=== PATIENT | male | born 1980 | race Caucasian/White ===

== ENCOUNTER 2017-01-27 05:53 | Emergency (ER) | payer OTHER ==
[~2017-01-27] VITALS: Ht 182.9 cm; Wt 69.6 kg
[~2017-01-27 05:53] MED LIST: CHLO.12%30 SSP; NAPR-576 PO; PENI500T PO
[2017-01-27 06:04] VITALS: BP 114/82; PULSE 93; RESP 14; TEMP 98.3; O2SAT 100
[2017-01-27 06:10] VITALS: BP 140/91; PULSE 89; RESP 18; O2SAT 100
[2017-01-27] MEDS ORDERED: NAPR220T95 PO (06:16)
[2017-01-27] MEDS ORDERED: IBUP400T20 PO (06:16)
[2017-01-27 06:50] VITALS: BP 140/91; PULSE 78; RESP 16; O2SAT 98
--- NOTE | 2017-01-27 07:37 | PD ---
HPI Chief Complaint: Musculoskeletal Complaint Time Seen by Provider: 07:19 Travel History International Travel<30 days: No Contact w/Intl Traveler<30days: No Traveled to known affect area: No History of Present Illness HPI This patient complains of straining his left pectoral muscle. Friday he was doing some shoveling in the yard later that evening had discomfort there. It is clearly reproducible with movement or raising his arm above his head. Severity is mild PFSH Past Medical History Medical History: Denies Significant Hx Diminished Hearing: No Immunizations Current: Yes Tetanus Vaccination: < 5 Years Influenza Vaccination: No Past Surgical History Surgical History: No Previous Surgery Social History Alcohol Use: No Tobacco Use: Yes (09/16 PPD) Substance Use: No Allergies-Medications (Allergen,Severity, Reaction): Coded Allergies: No Known Allergies (Unverified , 01/27/17) Reported Meds & Prescriptions Reported Meds & Active Scripts Active Reported Aleve (Naproxen Sodium) 220 Mg Tab 220 Mg PO BID PRN Ibuprofen 400 Mg Tab 400 Mg PO Q4H PRN Review of Systems General / Constitutional: No: Fever HENT: No: Headaches Respiratory: No: Cough Physical Exam Narrative CARDIOVASCULAR: Regular rate and rhythm without murmur. Extremities showed no edema or varicosities. RESPIRATORY: Respiratory effort unlabored, no retractions or use of accessory muscles. Breath sounds are clear and symmetric. SKIN: Focused skin assessment reveals no rash or ulcers. Skin is warm and dry. Palpation shows no induration or nodules. Chest wall exam is normal Data Data Last Documented VS Vital Signs Date Time Temp Pulse Resp B/P Pulse Ox O2 Delivery O2 Flow Rate FiO2 01/27/17 06:50 78 16 140/91 98 01/27/17 06:10 Room Air 01/27/17 06:04 98.3 MDM Medical Decision Making Medical Screen Exam Complete: Yes Emergency Medical Condition: Yes Medical Record Reviewed: Yes Differential Diagnosis Pectoral strain, contusion, costochondritis Narrative Course I have reviewed the patient's electronic medical record. Presentation is consistent with minor chest wall strain. There are no objective findings. Clearly reproducible with palpation or movement. He does not require cardiac evaluation. Supportive care discussed and gradual resolution is expected Diagnosis Primary Impression: Strain of left pectoralis muscle Qualified Code: S29.011A - Strain of left pectoralis muscle, initial encounter Additional Instructions: The patient was advised to follow up with their physician and return if they worsen. Med/Other Pt SpecificInfo: Other Disposition: 01 DISCHARGE HOME Condition: Stable Yony Ballesteros MD January 27, 2017 07:37
== END 2017-01-27 07:49 | disposition home or self-care (01) ==
LOC: PHED 05:53
DX: S29.011A Strain of muscle and tendon of front wall of thorax, initial encounter (principal); F17.200 Nicotine dependence, unspecified, uncomplicated; Y93.H1 Activity, digging, shoveling and raking; Y92.096 Garden or yard of other non-institutional residence as the place of occurrence of the external cause
CPT/HCPCS: 99283

== ENCOUNTER 2017-11-11 19:19 | Emergency (ER) | payer SELFPAY ==
[~2017-11-11] VITALS: Ht 182.9 cm; Wt 72.7 kg
[~2017-11-11 19:19] MED LIST changes: -CHLO.12%30 SSP; +IBUP1TAB5 PO; -NAPR-576 PO; +NAPR220T95 PO; -PENI500T PO
[2017-11-11 20:12] VITALS: BP 128/88; PULSE 68; RESP 18; TEMP 98.8; O2SAT 99
[2017-11-11] MEDS ORDERED: HYDR-3516 PO (20:22)
[2017-11-11] MEDS ORDERED: DICL75TA PO (20:22)
[2017-11-11] MEDS ORDERED: AMOX875T PO (20:22)
[2017-11-11] MEDS ORDERED: MAGICADU2 SWISH-SWAL (20:22)
[2017-11-11] MEDS ORDERED: MORPHINE SULFATE 2 MG/ML INJ IM ONE (20:30)
[2017-11-11] MEDS ORDERED: ONDANSETRON ODT 4 MG TAB PO ONE (20:30)
[2017-11-11] MEDS ORDERED: BUPIVACAINE HCL PF 0.5% 10 ML VIAL INFIL ONE (20:30)
[2017-11-11] MEDS ORDERED: AMOXICILLIN 875 MG TAB PO ONE (20:30)
[2017-11-11] MEDS ORDERED: ACETAMINOPHEN/HYDROcodone 325 MG/5 MG TAB PO ONE (20:30)
--- NOTE | 2017-11-11 20:35 | PD ---
HPI Chief Complaint: ENT Complaint Time Seen by Provider: 20:13 Travel History International Travel<30 days: No Contact w/Intl Traveler<30days: No Traveled to known affect area: No History of Present Illness HPI 37-year-old male that presents to the ED for evaluation of dental pain. Patient has had dental pain on the right lower jaw for about 5 hours. Per patient the pain has been significant 10 out of 10. His been taking Aleve with minimal relief. Per patient and it's very painful for him. He states that he has bad dentition the right lower jaw. He denies any other medical issues. No chest or shortness of breath. No fevers chills or sweats. He is not sure is coming from the tooth or from something else. He states having swelling in that same area. No allergies to medication. PFSH Past Medical History Diminished Hearing: No Immunizations Current: Yes Tetanus Vaccination: Unknown Influenza Vaccination: No Past Surgical History Surgical History: No Previous Surgery Social History Alcohol Use: No Tobacco Use: Yes (09/16 PPD) Substance Use: No Allergies-Medications (Allergen,Severity, Reaction): Coded Allergies: No Known Allergies (Unverified Adverse Reaction, Unknown, 11/11/17) Reported Meds & Prescriptions Reported Meds & Active Scripts Active Amoxicillin 875 Mg Tab 875 Mg PO BID 14 Days Hydrocodone-Acetamin 5-325 mg (Hydrocodone/Acetaminophen) 5 Mg-325 Mg Tablet 1 Tab PO Q6HR PRN Diclofenac Sodium DR (Diclofenac Sodium) 75 Mg Tabdr 75 Mg PO BID PRN Magic Mouthwash Adult Liq (Multi-Ingredient Mouthwash/Gargle) 120 Ml Susp 5 Ml SWISH-SWAL ACHS Each 5mL contains: Nystatin 200,000units, Diphenhydramine 4.25mg, Viscous Lidocaine 10mg, Tenorio syrup 0.8 mL Reported Ibuprofen 400 Mg Tab 400 Mg PO Q4H PRN Review of Systems Except as stated in HPI: all other systems reviewed are Neg Physical Exam Narrative GENERAL: SKIN: Warm and dry. HEAD: Atraumatic. Normocephalic. EYES: Pupils equal and round. No scleral icterus. No injection or drainage. ENT: No nasal bleeding or discharge. Mucous membranes pink and moist. Tongue is midline. No uvula deviation. Dental: Patient has significant cavity to the right lower third molar. Swelling to the gum noted. NECK: Trachea midline. No JVD. CARDIOVASCULAR: Regular rate and rhythm. RESPIRATORY: No accessory muscle use. Clear to auscultation. Breath sounds equal bilaterally. GASTROINTESTINAL: Abdomen soft, non-tender, nondistended. Hepatic and splenic margins not palpable. MUSCULOSKELETAL: Extremities without clubbing, cyanosis, or edema. No obvious deformities. NEUROLOGICAL: Awake and alert. No obvious cranial nerve deficits. Motor grossly within normal limits. Five out of 5 muscle strength in the arms and legs. Normal speech. PSYCHIATRIC: Appropriate mood and affect; insight and judgment normal. Data Data Last Documented VS Vital Signs Date Time Temp Pulse Resp B/P (MAP) Pulse Ox O2 Delivery O2 Flow Rate FiO2 11/11/17 20:12 98.8 68 18 128/88 (101) 99 Orders Orders Morphine Inj (Morphine Inj) (11/11/17 20:30) Ondansetron Odt (Zofran Odt) (11/11/17 20:30) Amoxicillin (Trimox) (11/11/17 20:30) Acetamin-Hydrocod 325-5 Mg ([place] 5-325 (11/11/17 20:30) Bupivacaine Pf 0.5% Inj (Marcaine Pf 0.5 (11/11/17 20:30) Ed Discharge Order (11/11/17 20:31) MDM Medical Decision Making Medical Screen Exam Complete: Yes Emergency Medical Condition: Yes Medical Record Reviewed: Yes Differential Diagnosis Abscesses versus dentalgia versus wisdom tooth pain Narrative Course 37-year-old male that presents to the ED for evaluation of right lower jaw pain. Patient was properly examined and was found to have signs and symptoms very consistent what appears to be dentalgia. Likely from infection. Patient has bad dentition in this tooth. At this time I recommend oral block. Patient agrees with this. After splint proceeded to the patient and he agreed. Using sterile syringe and a solution of 0.5% bupivacaine and 1% lidocaine about 3 cc were injected into the right lower jaw with improvement of symptoms. No blood or deformity noted afterwards. Patient was reassessed and had complete resolution of symptoms. Patient was given a prescription for Lortab, amoxicillin and Magic mouthwash. Given prescriptions for this. Told to follow with PCP. See ED worsening symptoms. Diagnosis Primary Impression: Dental infection Patient Instructions: General Instructions, Narcotic given in the ED Additional Instructions: Take medications as prescribed. Follow-up with PCP. See ED for any worsening symptoms. Do not drink or drive while taking pain medication. Apply ice or heat as needed for pain Med/Other Pt SpecificInfo: Prescription(s) given Scripts Amoxicillin (Amoxicillin) 875 Mg Tab 875 MG PO BID for Infection for 14 Days, #28 TAB 0 Refills Prov: Bimal Yanez MD 11/11/17 Hydrocodone/Acetaminophen (Hydrocodone-Acetamin 5-325 mg) 5 Mg-325 Mg Tablet 1 TAB PO Q6HR Y for PAIN SCALE 1 TO 10, #14 Prov: Bimal Yanez MD 11/11/[address] (Diclofenac Sodium DR) 75 Mg Tabdr 75 MG PO BID Y for PAIN SCALE 1 TO 10, #20 TAB 0 Refills Prov: Bimal Yanez MD 11/11/17 Edrvskex-Axzgfmrppzqfctg-Sahmotflh Liq (Magic Mouthwash Adult Liq) 120 Ml Susp 5 ML SWISH-SWAL ACHS for Mouth sores, #120 ML 0 Refills Each 5mL contains: Nystatin 200,000units, Diphenhydramine 4.25mg, Viscous Lidocaine 10mg, Tenorio syrup 0.8 mL Prov: Bimal Yanez MD 11/11/17 Disposition: 01 DISCHARGE HOME Condition: Fransico Lan Nov 11, 2017 20:35
[2017-11-11 21:07] VITALS: RESP 18
== END 2017-11-11 21:07 | disposition home or self-care (01) ==
LOC: PHED 19:19 → PHEFT 21:07
DX: K04.7 Periapical abscess without sinus (principal); K08.89 Other specified disorders of teeth and supporting structures; F17.210 Nicotine dependence, cigarettes, uncomplicated
CPT/HCPCS: 64400